=== PATIENT | female | born 1985 | race African-American/Black ===

== ENCOUNTER 2020-12-26 04:34 | Emergency (ER) | payer SELFPAY ==
[2020-12-26 04:36] VITALS: BP 140/94; PULSE 124; RESP 18; TEMP 36.9; O2SAT 100; BMI 27.6
[2020-12-26] MEDS: DiphenhydrAMINE 50 MG/ML Syringe IM (04:51)
[2020-12-26] MEDS: Metoclopramide 10 MG/2 ML Vial IM (04:51)
[2020-12-26] MEDS: Ketorolac 60 MG/2 ML Vial IM (04:51)
--- NOTE | 2020-12-26 05:06 | EX.ED.VIS.HA ---
HPI History of Present Illness Chief Complaint: Headache Informant: patient Onset/Context/Timing Onset: Days (2 days) Context: Gradual Timing: Waxes and wanes Quality -Headache: Positive for Throbbing Current Severity: Severe Maximum Severity: Severe Associated Symptoms/Injury Associated Symptoms: Positive for Nausea, Sinus Pressure and Preceding Aura Injury - MORAN: Negative for Direct Trauma, Fall and Assault Narrative Narrative: Patient presents a 2-day history of migraine. She reports a generalized throbbing sensation that is worse at the temples. She states she has had migraines for some time but they are becoming more frequent. She has also had sinus symptoms for the past 2 weeks. Patient denies recent head injury. She has had prior imaging of her brain secondary to migraines that was normal. [facility] Medical History (Updated 12/26/20 @ 05:[address] Mary Ann Kaye MD) Migraines Home Medications amoxicillin-pot clavulanate [Augmentin] 1 tab PO BID #20 tab 12/26/20 [Rx Last Taken Unknown] Allergy/AdvReac Type Severity Reaction Status Date / Time No Known Allergies Allergy Verified 12/26/20 04:40 Social History Smoking Status: Current every day smoker tobacco type: cigarettes and e-cigarettes ROS ROS ED Constitutional Constitutional ED: Denies chills or fever(s) Eyes Eyes: Denies change in vision ENT ENT ED: Denies sore throat Cardiovascular Cardiovascular: Denies chest pain Respiratory/Chest Respiratory/Chest: Denies cough or dyspnea Gastrointestinal Gastrointestinal: Reports nausea; Denies abdominal pain, diarrhea or vomiting Genitourinary Genitourinary ED: Denies dysuria Musculoskeletal Musculoskeletal: Denies back pain Integumentary Denies rash Neurologic Neurologic: Reports headache(s); Denies weakness Psychiatric Psychiatric: Denies anxiety or depression Endocrine Endocrinology: Denies polydipsia or polyuria Allergic/Immunologic Allergic/Immunologic ED: Denies urticaria EXAM Physical Exam Const Vital Signs: 12/26/20 04:36 Temperature 98.4 F Temperature Source Temporal Pulse Rate 124 H Respiratory Rate 18 Blood Pressure 140/94 H Blood Pressure Mean 109 Pulse Ox 100 Oxygen Delivery Method Room Air Positive well nourished and well developed General Appearance ED: well developed HEENT Reports normocephalic and head/scalp atraumatic Eyes PERRL and EOMs intact bilaterally Neck supple and no meningeal signs Chest Wall inspection of chest normal and palpation of chest normal Resp normal respiratory effort and clear to auscultation bilaterally Cardio regular rhythm Rate: tachycardic GI normal to inspection, nondistended, normoactive bowel sounds Palpation: soft Extremity normal to inspection Neuro oriented x3 and no sensory deficits noted Sensorium / Orientation: alert Motor Exam: strength 5/5 throughout Psych mental status grossly normal Skin no rashes or lesions noted MDM MDM MDM Narrative Medical decision making narrative: Patient was given IM Toradol, Reglan, and Benadryl. Treatment and Re-Evaluation Comments:: On repeat evaluation patient does feel improved. She will be treated with a course of Augmentin for sinus infection. She will be given referrals for both her PCP as well as neurology follow-up. Discharge Plan Triage Chief Complaint: Headache ED Provider: Mary Ann Kaye Dx/Rx/DC Orders Clinical Impression: Migraine, Sinusitis Instructions: ED, Migraine (Classical), ED Sinusitis (Antibiotic Treatment) Prescriptions: New amoxicillin-pot clavulanate [Augmentin] 875-125 mg tablet 1 tab PO BID Qty: 20 RF: 0 Primary Care Provider: Care Physician,No Primary Referrals: Aurora Pineda DO [STAFF PHYSICIAN] - As Needed Kaz Jordan MD [STAFF PHYSICIAN] - As Needed Care Physician,No Primary [Primary Care Provider] - Disposition Disposition: Home, Self Care
[2020-12-26] MEDS: Amox/Clavulanate 875 MG Tablet PO (06:10)
== END 2020-12-26 06:12 | disposition home or self-care (01) ==
PROVIDERS: Emergency Provider Emergency Medicine
DX: G43.909 Migraine, unspecified, not intractable, without status migrainosus (principal); J32.9 Chronic sinusitis, unspecified; F17.210 Nicotine dependence, cigarettes, uncomplicated
CPT/HCPCS: 96372; 99283